=== PATIENT | female | born 1980 | race Caucasian/White ===

== ENCOUNTER 2024-04-28 11:57 | Emergency (ER) | payer OTHER, SELFPAY ==
[2024-04-28 11:59] VITALS: BP 148/96
--- NOTE | 2024-04-28 12:06 | ED.GENMED ---
ED Provider Triage
<Krishan Mcdonough PA-C - Last Filed: 04/28/24 12:09>
-
Patient seen by provider in Triage?: Seen in Triage
43-year-old otherwise healthy female presents with sudden onset right flank pain starting this morning with associated nausea. She also saw blood in urine. Last menstrual cycle 2 weeks ago. No prior history of kidney stone. Seen initially at the
urgent care and sent here. Vomiting in triage.
zofran and toradol ordered in triage.
History of Present Illness
<Krishan Mcdonough PA-C - Last Filed: 04/28/24 12:09>
General
Chief Complaint: Flank Pain
Time Seen by Provider: 04/28/24 13:01
<Feliz Tafoya MD, Resident - Last Filed: 04/28/24 15:21>
General
Source: patient
Travel History
Have you traveled to any high risk areas for coronavirus over the past 14 days?: No
Have you had any contact with someone who has COVID-19?: No
Do you have any symptoms of coronavirus? Fever > 100 degrees, chills, cough, shortness of breath, sore throat, loss of taste or smell, muscle aches, or headache?: No
History of Present Illness
History of Present Illness:
Saira Ngo, 43-year-old female, has had right-sided flank pain, hematuria, nausea and vomiting since this morning. Also had chills the night prior. Went to the urgent care this morning, and was sent to the emergency for further evaluation. No
prior history of nephrolithiasis, recent or recurrent urinary tract infections, or other recent illnesses or changes to medications.
Past History
<Feliz Tafoya MD, Resident - Last Filed: 04/28/24 15:21>
Past History
ED Past Medical History: Other (hypothyroidism; asthma)
ED Past Surgical History: Other (endometriosis surgery 2023)
Social History
Tobacco: Non-smoker
Alcohol: Occasional
Drug: Marijuana
Review of Systems
<Feliz Tafoya MD, Resident - Last Filed: 04/28/24 15:21>
Review of Systems
All Other Systems: Not applicable
Constitutional: Reports chills
EENT: Reports no symptoms
Respiratory: Reports no symptoms
Cardiac: Reports no symptoms
ABD/GI: Reports nausea and vomiting
: Reports flank pain and other (hematuria)
Musculoskeletal: Reports no symptoms
Skin: Reports no symptoms
Neurological: Reports no symptoms
Endocrine: Reports no symptoms
Hematologic/Lymphatic: Reports no symptoms
Psychiatric: Reports no symptoms
Phy Exam
<Feliz Tafoya MD, Resident - Last Filed: 04/28/24 15:21>
General Physical Exam
General Presentation: well appearing and no apparent distress
General Skin: warm and dry
General Habitus: normal
General Mental: alert
General Hydration: appears well hydrated
ENT Exam
ENT Exam: EOMI, pharynx normal, neck supple and normocephalic
Eye Exam
Eye Exam: PERRL, cornea clear and conjunctiva normal
Cardiovascular Exam
Cardiovascular Exam: regular rate/rhythm, no edema, no murmur and normal peripheral pulses
Pulmonary Exam
Pulmonary Exam: lungs clear, no respiratory distress, no rales, no crackles, no rhonchi, no stridor, no wheezing and no cough
Gastrointestinal Exam
Gastrointestinal Exam: normal bowel sounds, non tender, soft, no organomegaly, no pulsatile mass, non distended and cva tenderness (right-sided)
Neurological Exam
Neurological Exam: alert, oriented x3, no motor deficits and speech normal
Musculoskeletal Exam
Musculoskeletal Exam: full ROM and no edema
Skin Exam
Skin Exam: normal color, warm/dry, no rash and no petechia
Psychiatric Exam
Psychiatric Exam: normal mood/affect
Course
<Krishan Mcdonough PA-C - Last Filed: 04/28/24 12:09>
Orders/Labs/Results
Orders:
Orders
04/28/24 12:06
CT Abd/pel Without Iv Or Oral Urgent
Comment:
Reason For Exam: right flank pain
Complete Blood Count/With Diff Urgent
Comprehensive Metabolic Panel Urgent
HCG, Serum Qualitative Screen Urgent
Comment: ADD
04/28/24 12:08
Ketorolac [Toradol] 30 mg IM NOW STA
Ondansetron Orally Disint [Zofran Odt (Orally Disintegrating)] 4 mg .ROUTE .[facility]-MED ONE
Ondansetron Orally Disint [Zofran Odt (Orally Disintegrating)] 4 mg PO NOW STA
04/28/24 12:13
Add On- LAB Urgent
Tests Added?: hcg
04/28/24 14:25
Urinalysis Reflex To Culture Urgent
Date Specimen was Collected: 04/28/24
Time Specimen was Collected: 12:04
Urine Microscopic Reflex Cult Urgent
Abnormal Lab Results
04/28/24 04/28/24
12:06 14:25
MCV 79.6 L fL
(81.0-99.0)
MCH 26.4 L pg
(27.0-31.0)
RDW 14.6 H %
(11.5-14.5)
Absolute Lymphs (auto) 0.5 L 10^3/uL
(1.2-3.4)
Absolute Monos (auto) 0.7 H 10^3/uL
(0.1-0.6)
Neutrophils % 80.9 H %
(42.2-75.2)
Lymphocytes % 7.6 L %
(20.5-51.1)
Monocytes % 10.7 H %
(1.7-9.3)
Glucose 122 H mg/dl
(70-99)
Urine Ketones 1+ A
(Negative)
Ur Occult Blood Reflex 4+ A
(Negative)
Urine RBC >100 A /HPF
(0-2)
Urine Bacteria (Reflex) Few A
(Negative)
Urine Albumin (Reflex) 1+ A
(Neg - Trace)
04/28/24 12:06
04/28/24 12:06
Vital Signs
Initial and Last Documented VS:
Initial Vital Signs
Temp Pulse Resp BP Pulse Ox
98.3 F 71 18 148/96 98
04/28/24 11:59 04/28/24 11:59 04/28/24 11:59 04/28/24 11:59 04/28/24 11:59
Last Documented Vital Signs
Temp Pulse Resp BP Pulse Ox
98.3 F 71 18 148/96 98
04/28/24 11:59 04/28/24 11:59 04/28/24 11:59 04/28/24 11:59 04/28/24 11:59
<Feliz Tafoya MD, Resident - Last Filed: 04/28/24 15:21>
Orders/Labs/Results
Orders:
Orders
04/28/24 12:06
CT Abd/pel Without Iv Or Oral Urgent
Comment:
Reason For Exam: right flank pain
Complete Blood Count/With Diff Urgent
Comprehensive Metabolic Panel Urgent
HCG, Serum Qualitative Screen Urgent
Comment: ADD
04/28/24 12:08
Ketorolac [Toradol] 30 mg IM NOW STA
Ondansetron Orally Disint [Zofran Odt (Orally Disintegrating)] 4 mg .ROUTE .[facility]
Ondansetron Orally Disint [Zofran Odt (Orally Disintegrating)] 4 mg PO NOW STA
04/28/24 12:13
Add On- LAB Urgent
Tests Added?: hcg
04/28/24 14:25
Urinalysis Reflex To Culture Urgent
Date Specimen was Collected: 04/28/24
Time Specimen was Collected: 12:04
Urine Microscopic Reflex Cult Urgent
Abnormal Lab Results
04/28/24 04/28/24
12:06 14:25
MCV 79.6 L fL
(81.0-99.0)
MCH 26.4 L pg
(27.0-31.0)
RDW 14.6 H %
(11.5-14.5)
Absolute Lymphs (auto) 0.5 L 10^3/uL
(1.2-3.4)
Absolute Monos (auto) 0.7 H 10^3/uL
(0.1-0.6)
Neutrophils % 80.9 H %
(42.2-75.2)
Lymphocytes % 7.6 L %
(20.5-51.1)
Monocytes % 10.7 H %
(1.7-9.3)
Glucose 122 H mg/dl
(70-99)
Urine Ketones 1+ A
(Negative)
Ur Occult Blood Reflex 4+ A
(Negative)
Urine RBC >100 A /HPF
(0-2)
Urine Bacteria (Reflex) Few A
(Negative)
Urine Albumin (Reflex) 1+ A
(Neg - Trace)
04/28/24 12:06
04/28/24 12:06
Vital Signs
Initial and Last Documented VS:
Initial Vital Signs
Temp Pulse Resp BP Pulse Ox
98.3 F 71 18 148/96 98
04/28/24 11:59 04/28/24 11:59 04/28/24 11:59 04/28/24 11:59 04/28/24 11:59
Last Documented Vital Signs
Temp Pulse Resp BP Pulse Ox
98.3 F 71 18 148/96 98
04/28/24 11:59 04/28/24 11:59 04/28/24 11:59 04/28/24 11:59 04/28/24 11:59
<Mary Ann Velarde MD - Last Filed: 04/28/24 14:36>
Orders/Labs/Results
Orders:
Orders
04/28/24 12:06
CT Abd/pel Without Iv Or Oral Urgent
Comment:
Reason For Exam: right flank pain
Complete Blood Count/With Diff Urgent
Comprehensive Metabolic Panel Urgent
HCG, Serum Qualitative Screen Urgent
Comment: ADD
04/28/24 12:08
Ketorolac [Toradol] 30 mg IM NOW STA
Ondansetron Orally Disint [Zofran Odt (Orally Disintegrating)] 4 mg .ROUTE .[facility]-MED ONE
Ondansetron Orally Disint [Zofran Odt (Orally Disintegrating)] 4 mg PO NOW STA
04/28/24 12:13
Add On- LAB Urgent
Tests Added?: hcg
04/28/24 14:25
Urinalysis Reflex To Culture Urgent
Date Specimen was Collected: 04/28/24
Time Specimen was Collected: 12:04
Urine Microscopic Reflex Cult Urgent
Abnormal Lab Results
04/28/24 04/28/24
12:06 14:25
MCV 79.6 L fL
(81.0-99.0)
MCH 26.4 L pg
(27.0-31.0)
RDW 14.6 H %
(11.5-14.5)
Absolute Lymphs (auto) 0.5 L 10^3/uL
(1.2-3.4)
Absolute Monos (auto) 0.7 H 10^3/uL
(0.1-0.6)
Neutrophils % 80.9 H %
(42.2-75.2)
Lymphocytes % 7.6 L %
(20.5-51.1)
Monocytes % 10.7 H %
(1.7-9.3)
Glucose 122 H mg/dl
(70-99)
Urine Ketones 1+ A
(Negative)
Ur Occult Blood Reflex 4+ A
(Negative)
Urine RBC >100 A /HPF
(0-2)
Urine Bacteria (Reflex) Few A
(Negative)
Urine Albumin (Reflex) 1+ A
(Neg - Trace)
04/28/24 12:06
04/28/24 12:06
Vital Signs
Initial and Last Documented VS:
Initial Vital Signs
Temp Pulse Resp BP Pulse Ox
98.3 F 71 18 148/96 98
04/28/24 11:59 04/28/24 11:59 04/28/24 11:59 04/28/24 11:59 04/28/24 11:59
Last Documented Vital Signs
Temp Pulse Resp BP Pulse Ox
98.3 F 71 18 148/96 98
04/28/24 11:59 04/28/24 11:59 04/28/24 11:59 04/28/24 11:59 04/28/24 11:59
<Feliz Tafoya MD, Resident - Last Filed: 04/28/24 15:21>
MDM/Problems Addressed
Differential Diagnosis Includes:
Nephrolithiasis/ureterolithiasis; renal infarction; malignancy; pyelonephritis; acute simple cystitis
MDM/Problems Addressed:
Reviewed CT AP results which show a 4.5 mm partially obstructing calculus in the proximal-mid right ureter associated with mild right hydronephrosis. Will check a UA to rule out infection. Discussed outpatient management and urology follow-up.
Patient agreeable with the plan.
<Feliz Tafoya MD, Resident - Last Filed: 04/28/24 15:21>
*Critical Care Note
Total Time (30-74mins, 75-104mins- exclusive of procedures): Not Applicable
ED Attending Note
<Krishan Mcdonough PA-C - Last Filed: 04/28/24 12:09>
-
Portions of this chart may have been created with voice recognition software.� Occasional wrong word or��sound alike� substitutions may have occurred due to the inherent limitations of voice recognition software.
<Mary Ann Velarde MD - Last Filed: 04/28/24 14:36>
ED Attending Note
Patient seen and examined by attending physician: Yes
I performed the substantive portion of visit, reviewed & personally made and approve the management plan that is documented in note by myself or PÉREZ.: Yes
ED Attending Note:
43-year-old female presents emergency department with the abrupt onset of right-sided flank pain, very vague radiation to the right mid abdominal area, since this morning. This was associated with nausea and vomiting, denies fever, chills, chest
pain, shortness of breath, lower abdominal pain, numbness, tingling, swelling. Was noted to have microscopic hematuria in urgent care and sent in the emergency department for further evaluation and management. Status post Toradol patient extremely
comfortable and pain-free now. CT consistent with stone, awaiting urine to rule out infection, patient likely discharged with strainer, Flomax, urofollow-up, etc. Discussed with patient precautions regarding medications including narcotics.
Discharge Plan
Departure
Patient Disposition: Home (Routine Discharge)
Date of Disposition: 04/28/24
Time of Disposition: 15:19
Patient with high blood pressure during this ER visit?: Yes
Discharge Problem:
Right ureteral calculus, Hydronephrosis of right kidney
Instructions: Kidney Stones (DC), How to Strain Your Urine, BLOOD PRESSURE, Narcotic Pain Medication
Prescriptions:
New
ondansetron HCl 4 mg tablet
4 mg PO Q8H PRN (Reason: nausea and vomiting) Qty: 13 0RF
tamsulosin [Flomax] 0.4 mg capsule
0.4 mg PO DAILY Qty: 7 0RF
oxycodone-acetaminophen [Percocet] 5-325 mg tablet
1 tab PO Q4HPRN PRN (Reason: pain) Qty: 9 0RF
Referrals:
Brayden Miller Jr., MD [Active] - Follow up in 1 week
Puma Ansari MD [Family Provider] -
Activity Restrictions/Additional Instructions:
IF YOU DEVELOP FEVER, FATIGUE, WEAKNESS, LETHARGY, WORSENING NAUSEA AND VOMITING, OR UNCONTROLLABLE/WORSENING PAIN, PLEASE RETURN TO THE EMERGENCY OR CALL 911.
Interventions
Interventions:
*Risk Screen - Suicide Last Done: 04/28/24 11:59
*General Assessment Last Done: 04/28/24 11:59
*Neglect/Abuse Screening Last Done: 04/28/24 11:59
*ED COVID-19 Vaccine History Last Done: 04/28/24 11:59
SP-Toyesi-Jrkfzydmda Assessment Last Done: 04/28/24 12:47
ED-Female Genitourinary Assessment Last Done: 04/28/24 12:47
Discharge Date and Time
Print Language: [place]
[2024-04-28] MEDS: ZOFRAN ODT (ORALLY DISINTEGRATING) 4 MG PO (12:10)
[2024-04-28] MEDS: TORADOL 30 MG IM (12:10)
[2024-04-28 12:16] LABS: % Basophils 0.3 % (0-2); % Immature Granulocytes 0.5 % (0-0.5); % Lymphocytes 7.6 % (20.5-51.1); % Monocytes 10.7 % (1.7-9.3); % Neutrophils 80.9 % (42.2-75.2); Absolute Lymphocytes 0.5 10^3/uL (1.2-3.4); Absolute Monocytes 0.7 10^3/uL (0.1-0.6); Absolute Neutrophils 4.9 10^3/uL (1.4-6.5); Hematocrit 37.1 % (37.0-47.0); Hemoglobin 12.3 g/dL (12.0-16.0); Mean Corp Hgb Conc. 33.2 g/dL (33.0-37.0); Mean Corpuscular Hgb 26.4 pg (27.0-31.0); Mean Corpuscular Volume 79.6 fL (81.0-99.0); Mean Platelet Volume 9.3 fL (7.4-10.4); Nucleated Red Blood Cells % 0 %; Platelet Count 294 10^3/uL (130-400); Red Blood Cell Count 4.66 10^6/uL (4.20-5.40); Red Cell Dist. Width 14.6 % (11.5-14.5); White Blood Cell Count 6.1 10^3/uL (4.8-10.8)
[2024-04-28 12:45] LABS: ALT (SGPT) 20 U/L (0-35); AST (SGOT) 23 U/L (14-36); Albumin 4.5 g/dl (3.5-5.0); Alkaline Phosphatase 49 U/L (38-126); Blood Urea Nitrogen 11 mg/dl (7-17); Calcium 8.9 mg/dl (8.4-10.2); Carbon Dioxide 22 mmol/L (22-30); Chloride 101 mmol/L (98-107); Glucose 122 mg/dl (70-99); Potassium 3.8 mmol/L (3.5-5.1); Sodium 136 mmol/L (135-145); Total Bilirubin 0.4 mg/dl (0.2-1.3); Total Protein 7.2 g/dl (6.3-8.2); eGFR > 60.00
[2024-04-28 13:16] LABS: HCG, Serum Qualitative Screen Negative
[2024-04-28 14:52] LABS: Urine Albumin 1+ (Neg - Trace); Urine Bilirubin Negative (Negative); Urine Character Slightly Cloudy (Clear); Urine Color Yellow; Urine Glucose Negative (Negative); Urine Ketone 1+ (Negative); Urine Leukocyte Negative (Negative); Urine Nitrite Negative (Negative); Urine Occult Blood 4+ (Negative); Urine Urobilinogen Negative (Neg - 1+)
[2024-04-28 15:14] LABS: Urine Squamous Cell >30 /LPF (Few)
[2024-04-28 15:15] LABS: Urine Amorphous Seen; Urine Red Blood Cell >100 /HPF (0-2)
[2024-04-28 15:16] LABS: Urine Bacteria Few (Negative); Urine White Cell 0-2 /HPF (0-5)
[2024-04-28 15:33] VITALS: BP 134/92
== END 2024-04-28 15:34 | disposition home or self-care (01) ==
LOC: EMR 11:57
PROVIDERS: Physician Assistant; EMERGENCY PHYSICIAN Emergency Medicine; FAMILY PHYSICIAN Family Medicine
DX: N13.2 Hydronephrosis with renal and ureteral calculous obstruction (principal); R03.0 Elevated blood-pressure reading, without diagnosis of hypertension
CPT/HCPCS: 99284; 96372; 74176; 80053; 81003; 81015; 84703; 85025